=== PATIENT | female | born 1960 | race Caucasian/White ===

== ENCOUNTER 2019-05-24 14:11 | Day surgery (SDC) | payer OTHER ==
[2019-05-24] MEDS ORDERED: LIDOCAINE 2% (SDV) 5 ML INJ (17:35)
[2019-05-24] MEDS ORDERED: PROPOFOL 20 ML (17:35)
[2019-05-24] MEDS ORDERED: CEFAZOLIN 1 GM INJ (17:35)
[2019-05-24] MEDS: BUPIVACAINE 0.5% 30 ML VIAL INJ (18:20)
[2019-05-24] MEDS ORDERED: ONDANSETRON 4 MG INJ (18:25)
[2019-05-24] MEDS ORDERED: METOCLOPRAMIDE 10 MG INJ (18:25)
[2019-05-24] MEDS ORDERED: hydrALAzine 20 MG INJ IV (19:00)
[2019-05-24] MEDS ORDERED: METOCLOPRAMIDE 10 MG INJ IV (19:00)
[2019-05-24] MEDS ORDERED: EPHEDrine 25 MG/5 ML SYG IV (19:00)
[2019-05-24] MEDS ORDERED: OXYCODONE/ACETAMINOPHEN (5/325) TAB PO (19:00)
[2019-05-24] MEDS ORDERED: DIPHENHYDRAMINE 50 MG INJ IV (19:00)
[2019-05-24] MEDS ORDERED: FENTAnyl 50 MCG/ML VIAL IV ×2 (19:00)
[2019-05-24] MEDS ORDERED: MIDAZOLAM 1 MG/ML 2 ML INJ IV (19:00)
[2019-05-24] MEDS ORDERED: MEPERIDINE 25 MG INJ IV (19:00)
[2019-05-24] MEDS ORDERED: LABETALOL HCL 20MG INJ IV (19:00)
[2019-05-24] MEDS: FENTAnyl 50 MCG/ML VIAL IV (19:05)
[2019-05-24] MEDS: ONDANSETRON 4 MG INJ IV (19:05)
[2019-05-24] MEDS: OXYCODONE/ACETAMINOPHEN (5/325) TAB PO (19:06)
== END 2019-05-24 20:43 | disposition home or self-care (01) ==
LOC: SDS 14:11
DX: G56.02 Carpal tunnel syndrome, left upper limb (principal); M65.4 Radial styloid tenosynovitis [de Quervain]; M67.432 Ganglion, left wrist; I10 Essential (primary) hypertension; E78.5 Hyperlipidemia, unspecified; E66.9 Obesity, unspecified; Z68.31 Body mass index [BMI] 31.0-31.9, adult
CPT/HCPCS: 25000; 71045